=== PATIENT | female | born 1975 | race Caucasian/White ===

== ENCOUNTER → 2019-01-11 | Day surgery (SDC) | payer MEDICAID ==
[2019-01-10 12:09] LABS: Urine Bacteria FEW /hpf (None Seen); Urine Blood 1+ /uL (Negative); Urine Specific Gravity 1.022 (1.001-1.035); Urine WBC 14 /hpf (0 - 5)
[2019-01-10 12:19] LABS: Basophils # (auto) 0 uL; Basophils % (auto) 0.8 % (0.0-2.0); Eosinophils # (auto) 0.1 uL; Eosinophils % (auto) 1.1 % (0.0-7.0); Hematocrit 40.4 % (36.0-46.0); Hemoglobin 13.5 g/dL (12.2-16.2); Lymphocytes # (auto) 1.3 uL; Lymphocytes % (auto) 23.9 % (10.0-50.0); Mean Corpuscular Hemoglobin 31.3 pg (28.0-32.0); Mean Corpuscular Hgb Conc. 33.3 g/dL (32.0-36.0); Mean Corpuscular Volume 93.9 fL (80.0-100.0); Monocytes # (auto) 0.4 uL; Monocytes % (auto) 6.8 % (0.0-12.0); Neutrophils # (auto) 3.6 uL; Neutrophils % (auto) 67.4 % (37.0-80.0); Nucleated Red Blood Cells % 0.1 %; Platelet Count (auto) 258 10^3/uL (140-450); Red Cell Distribution Width 12.6 % (11.8-14.3); White Blood Cell 5.3 10^3/uL (4.4-10.8)
[2019-01-10 12:27] LABS: INR 0.94 (0.9-1.15); Partial Thromboplastin Time 28.2 sec (23.78-33.04); Prothrombin Time 10.1 sec (9.27-12.13)
[2019-01-10 12:38] LABS: Albumin 4.1 g/dL (3.4-5.0); Calcium 8.7 mg/dL (8.5-10.1); Potassium 3.8 mmol/L (3.5-5.1)
[2019-01-10 12:42] LABS: BUN/Creatinine Ratio 21.3; Bilirubin, Total 0.3 mg/dL (0.2-1.0); Total Protein 8.1 g/dL (6.4-8.2)
[~2019-01-11] VITALS: Ht 154.9 cm; Wt 51.3 kg
[~2019-01-11] MED LIST: BUPIVACAINE 0.75% INJ 10ML MPV SDV IJ ONE; GLYCOPYRROLATE 0.2 MG/ML 1ML VIAL ONE; HYDROmorphone HCL 2 MG/ML VL IV PRN; LIDOCAINE 1% INJ PF 5ML AMP ONE; METOCLOPRAMIDE HCL 5MG/ml INJ 2ml VIAL ONE; MIDAZOLAM HCL 1MG/1ML-2 ML VIAL ONE; NALOXONE HCL 0.4 MG/ML VIAL IV PRN; ONDANSETRON HCL 4 MG/2 ML VIAL IV ONE; PROPOFOL 10 MG/ML 20 ML IV ONE; ceFAZolin 1GM/50ML 50 ML IV ONE; diphenhdrAMINE HCL 50 MG/1 ML VL ONE
[2019-01-11 14:52] VITALS: BP 126/82
== END | disposition home or self-care (01) ==
LOC: SUR 10:03
PROVIDERS: ATTEND Podiatrist Foot & Ankle Surgery
DX: M20.11 Hallux valgus (acquired), right foot (principal); Z98.890 Other specified postprocedural states; Z79.899 Other long term (current) drug therapy
CPT/HCPCS: 28296; J1200; J2765; L3260; Q4137; 36415; 73630; 80053; 81001; 84702; 85025; 85610; 85730; C1769; J0690; J2250; J2704; J3490

== ENCOUNTER 2025-07-28 09:23 | Day surgery (SDC) | payer BC ==
[2025-07-26 14:29] LABS: Hematocrit 39.8 % (36.0-46.0); Hemoglobin 13.5 g/dL (12.2-16.2); Mean Corpuscular Hemoglobin 31.4 pg (28.0-32.0); Mean Corpuscular Volume 92.4 fL (80.0-100.0); Nucleated Red Blood Cells % 0.1 %
[2025-07-26 14:43] LABS: INR 0.97 (0.9-1.15); Partial Thromboplastin Time 26.5 SEC (24.5-34.5); Prothrombin Time 10.3 sec (9.3-11.8)
[2025-07-26 14:59] LABS: Alanine Aminotransferase 11 U/L (7-40); Albumin 4.4 g/dL (3.2-4.8); Anion Gap 10 (5-15); BUN/Creatinine Ratio 10.4 (10.0-20.0); Bilirubin, Total 0.6 mg/dL (0.2-1.0); Blood Urea Nitrogen 10 mg/dL (9-23); Calcium 9.3 mg/dL (8.7-10.4); Carbon Dioxide 27 mmol/L (20-31); Chloride 104 mmol/L (98-107); Potassium 3.7 mmol/L (3.5-5.1); Sodium 141 mmol/L (136-145); Total Protein 7.2 g/dL (5.7-8.2)
[2025-07-26 15:00] LABS: Alkaline Phosphatase 44 U/L (46-116); Glucose 135 mg/dL (74-106)
[~2025-07-28] VITALS: Ht 154.9 cm; Wt 51.3 kg
[2025-07-28 10:42] VITALS: PULSE 88; RESP 16; O2SAT 100
[2025-07-28] MEDS: MIDAZOLAM HCL 2MG/2ML 2ml VIAL (1mg/ml) ONE (10:45)
[2025-07-28] MEDS: fentaNYL CITRATE 100 MCG/2 ML VL ONE (10:45)
--- NOTE | 2025-07-28 11:05 | DVHNC2 ---
Procedure - DATE OF SERVICE: 2024 PROCEDURE PERFORMED BY: Carmelo Amezcua MD REFERRING PROVIDER: [facility] PROCEDURE PERFORMED: 1. COLONOSCOPY WITH MODERATE SEDATION 2. COLONOSCOPY WITH COLD BIOPSY PREPROCEDURE DIAGNOSIS: 1. Colon cancer screening POSTPROCEDURE DIAGNOSIS: 1. Internal and external hemorrhoids 2. Possible polyp on the ileocecal valve INDICATION FOR PROCEDURE: The patient is a 50-year-old female who presents for outpatient colonoscopy for screening. MEDICATIONS USED: 4mg of Versed IV and 50mcg of fentanyl IV DETAILS OF THE PROCEDURE: Informed consent was obtained after risks, benefits, and alternatives, were discussed at length with the patient, the patient gave consent to the procedure as well as a medication used for sedation. She was brought into the GI suite and placed in the left lateral decubitus position. Digital rectal exam showed internal hemorrhoids external hemorrhoids. An Ol ympus variable torsion pediatric colonoscope was inserted into the rectum and advanced to the cecum. The cecum was identified by the ileocecal valve and appendiceal orifice. The prep was good with only small amounts of stool. The patient had an abnormal appearing ileocecal valve which was probably normal variant however biopsies were taken to rule out any polypoid tissue. There were no large polyps masses strictures or arteriovenous malformation seen. More than 6 minutes withdrawal time was noted. Retroflexion showed internal hemorrhoids. The patient tolerated the procedure well. START TIME: 10 50 CECUM TIME: 1052 END TIME: 1103 [place] BOWEL PREP SCORE:9 IMPRESSION: 1. Internal and external hemorrhoids and possible polyp on the ileocecal valve RECOMMENDATIONS: 1. If the ileocecal valve shows polypoid tissue that is adenomatous, the patient will need repeat colonoscopy for for removal , and if the tissue was normal the patient will need repeat colonoscopy in 10 years unless otherwise indicated 2. High-fiber diet 3. Follow up in GI clinic for procedure and pathology results 4. Follow up with primary care physician 5. Medical management of hemorrhoids CARMELO AMEZCUA MD Jul 28, 2025 11:05
[2025-07-28 11:06] VITALS: PULSE 68; RESP 12; TEMP 98.2; O2SAT 100
[2025-07-28 11:31] VITALS: BP 129/90; PULSE 78; RESP 15; O2SAT 98
== END 2025-07-28 11:51 | disposition home or self-care (01) ==
LOC: GI 09:23
PROVIDERS: ATTEND Specialist
DX: Z12.11 Encounter for screening for malignant neoplasm of colon (principal); K64.4 Residual hemorrhoidal skin tags; K64.8 Other hemorrhoids
CPT/HCPCS: 36415; 45380; 80053; 81025; 85025; 85610; 85730; 88305; J2250; J3010; J7030